=== PATIENT | male | born 1975 | race Caucasian/White ===

== ENCOUNTER 2018-08-09 02:11 | Emergency (ER) | payer OTHER, SELFPAY ==
[2018-08-09 02:34] VITALS: BP 132/101; PULSE 114; RESP 18; TEMP 37.1; O2SAT 98; BMI 19.0
--- NOTE | 2018-08-09 02:42 | ED.EXTPRO ---
HPI - Extremity Problem General Chief complaint: Extremity Problem,Nontraumatic Stated complaint: Right shoulder and upper arm pain 3 days Time Seen by Provider: 08/09/18 02:42 Source: patient Mode of arrival: ambulatory Limitations: no limitations History of Present Illness HPI Narrative: Patient is a 42-year-old male here for evaluation of right shoulder and arm pain. He states that he woke up approximately 3 days ago with pain in his upper shoulder down to his right arm. He went to another facility where he was given a prescription for Flexeril and lidocaine patches and prednisone. He states that he has been taking these medications without much relief. He states he does have tingling in the fingers of his right hand. No trauma. Has never had anything like this before. No headaches. No skin changes. Related Data Previous Rx's Medication Instructions Recorded hydrocodone-acetaminophen [[place]] 1 tab PO Q4-6H PRN #10 tab 08/09/18 meloxicam [Mobic] 15 mg PO DAILY #20 tab 08/09/18 Allergies Allergy/AdvReac Type Severity Reaction Status Date / Time No Known Drug Allergies Allergy Verified 08/09/18 02:38 Review of Systems Constitutional Denies fever(s) and Denies headache(s) ENT Ears, Nose, Mouth, and Throat: Denies headache(s) and Reports neck pain Cardiovascular Denies chest pain and Denies dyspnea Respiratory Denies dyspnea Musculoskeletal Reports myalgias (Muscles in the right upper arm), Reports arthralgias (Right shoulder), Reports muscle cramps (Muscles on the right upper arm), Reports neck pain and Reports tingling (Right hand) Integumentary/Breasts Reports lesions and Reports rash Neurologic Denies headache(s), Reports tingling (Right hand) and Reports paresthesias Hematologic/Lymphatic Comments: Not on anticoagulation PFSH Medical History Healthy adult (Acute) Surgical History No pertinent past surgical history (Acute) Social History lives independently: Yes Smoking Status: Current every day smoker Exam Initial Vital Signs Initial Vital Signs: Vital Signs Temperature 98.8 F 08/09/18 02:34 Pulse Rate 114 H 08/09/18 02:34 Respiratory Rate 18 08/09/18 02:34 Blood Pressure 132/101 H 08/09/18 02:34 Pulse Oximetry 98 08/09/18 02:34 Const General: cooperative, well developed, well groomed and No acute distress Orientation: alert, awake and oriented x3 HENMT Head: normal to inspection and normocephalic Resp Effort & Inspection: normal respiratory effort Back/Spine/Pelvis Cervical Spine: No cervical spasm, No cervical spinal tenderness and No step off deformity Other: Positive Spurling maneuver on the right. Skin Lesions: no lesions Rashes: no rashes Neuro General: alert, awake and oriented x3 Other: Tingling in the right hand of the thumb index and middle finger. Median nerve distribution. Extrem Other: Full range of motion of right shoulder right elbow or right wrist. Course Orders Ordered: Discontinued Medications Ketorolac Tromethamine (Toradol) 30 mg IM NOW ONE Stop: 08/09/18 02:44 Last Admin: 08/09/18 02:50 Dose: 30 mg Vital Signs - 8 hr 08/09/18 02:34 Temperature 98.8 F Pulse Rate 114 H Respiratory Rate 18 Blood Pressure 132/101 H Pulse Oximetry 98 MDM - Extremity (Nontraumatic) MDM Narrative Medical decision making narrative: Patient's history and physical is consistent with cervical radiculopathy in the right arm. He is currently on a course of steroids. He states the lidocaine patches were not working so informed that he could stop these. I also informed her that the Flexeril was not working he could stop this as well however he states that he does feel like he is having muscle spasms. He was given a Toradol shot here in the emergency department. I do not feel that there is an indication for radiologic studies. No signs of infection. Will send home with a prescription for Mobic because other than the prednisone he has not taken any anti-inflammatories. Also sent home with a very short course of [place]. He he was informed that this could take several weeks to improve. He was given contact information for a orthopedic provider during his last emergency department visit. Discharge Plan Departure Patient Disposition: Home Clinical Impression: Cervical radiculopathy Instructions: DI for Cervical Radiculopathy Activity Restrictions/Additional Instructions: I do recommend that you continue the prednisone. If the lidocaine patches are not working that you can stop these. You can use the Flexeril as needed for any muscle spasms. I do recommend that you start the Mobic that you were given a prescription for today. Instead of this medication you can take Motrin/ibuprofen or Naprosyn. You were also given a prescription for some pain medication. Studies have shown that extended use of pain medication in your condition is not helpful. Contact your primary care doctor for follow-up. You were given contact information for [facility] on the discharge paperwork from your last emergency department visit I suggest you follow-up them as well. Prescriptions: New hydrocodone-acetaminophen [[place]] 5-325 mg tablet 1 tab PO Q4-6H PRN (Reason: pain) Qty: 10 RF: 0 meloxicam [Mobic] 15 mg tablet 15 mg PO DAILY Qty: 20 RF: 0
[2018-08-09] MEDS: KETOROLAC 60 MG/2 ML VIAL 30 MG IM (02:50)
[2018-08-09] MEDS: HYDROCODONE/ACET 5/325 PREPACK 1 BOTTLE MISC (03:24)
[2018-08-09 03:25] VITALS: BP 118/86; PULSE 98; RESP 16; O2SAT 99
== END 2018-08-09 03:31 | disposition home or self-care (01) ==
PROVIDERS: Emergency Provider Emergency Medicine
DX: M54.12 Radiculopathy, cervical region (principal)
CPT/HCPCS: 99282; 99283; J1885